=== PATIENT | female | born 1925 | race Caucasian/White ===

== ENCOUNTER → 2016-12-02 | Emergency (ER) | payer MEDICARE ==
[~2016-12-02] VITALS: Ht 162.6 cm; Wt 52.0 kg
[~2016-12-02] MED LIST: KETOROLAC 15 MG/ML (TORADOL) 1 ML VIAL ONE; PRD50T PO
[2016-12-02 11:03] LABS: BASOPHILS % (AUTO) 0 % (0-2); EOSINOPHILS % (AUTO) 0 % (0-4); LYMPHOCYTES # (AUTO) 1.5 X10^3; MEAN CORPUSCULAR HEMOGLOBIN 30.1 PG (26.0-34.0); MEAN CORPUSCULAR HGB CONC 34.1 g/dL (31.0-37.0); MEAN CORPUSCULAR VOLUME 88 FL (80-100); MEAN PLATELET VOLUME 10.1 FL (6.0-9.5); MONOCYTES # (AUTO) 1.1 X10^3; MONOCYTES % (AUTO) 9 % (3-11); NEUTROPHILS % (AUTO) 77 % (51-67); PLATELET COUNT 285 10^3uL (150-450); WHITE BLOOD COUNT 11.64 10^3uL (4.0-11.0)
[2016-12-02 11:15] LABS: ALKALINE PHOSPHATASE 71 U/L (38-126); ANION GAP 15.4 MEQ/L (3-15); BUN/CREATININE RATIO 24 (10-20); CALCULATED IONIZED CALCIUM 4.2 mg/dL (3.8-4.6); TOTAL PROTEIN 6.7 g/dL (6.4-8.5)
--- NOTE | 2016-12-02 11:52 | Diagnostic Imaging Report ---
INDICATION: Chest pain. COMPARISON: None FINDINGS: Frontal and lateral views of the chest demonstrate normal heart size and pulmonary vascularity. There is aortic atherosclerosis. The lungs are clear. There are no signs of infiltrate, pleural effusions or pneumothoraces. The visualized osseous structures show no acute abnormalities. IMPRESSION: 1. No acute process. No signs of infiltrates, effusions or pneumothoraces. Dictated by: Dictated on workstation # [id number]
[2016-12-02 12:04] VITALS: BP 113/52
== END | disposition home or self-care (01) ==
LOC: EDBD 10:34 → ED 10:34
DX: R07.89 Other chest pain (principal)
CPT/HCPCS: 36415; 71020; 80053; 84484; 85025; 85610; 85730; 93005; 96374; 99285; J1885; 93010